=== PATIENT | male | born 1985 | race Caucasian/White ===

== ENCOUNTER 2022-05-02 15:42 | Inpatient (IN) | payer MEDICAID, OTHER ==
[~2022-05-02] VITALS: Ht 175.3 cm; Wt 65.8 kg
[~2022-05-02 15:42] MED LIST: CHLO100T42 PO; DIVA-80 PO; RISP1TAB48 PO; RISP2TAB45 PO
[2022-05-02] MEDS ORDERED: METF-1211 PO (16:24)
[2022-05-02] MEDS ORDERED: RISP3TAB35 PO (16:24)
[2022-05-02] MEDS ORDERED: CHLO100T42 PO (16:24)
[2022-05-02] MEDS ORDERED: CITA-144 PO (16:24)
[2022-05-02] MEDS ORDERED: ATOR40TA28 PO (16:24)
[2022-05-02] MEDS ORDERED: METO50 PO (16:24)
[2022-05-02] MEDS ORDERED: QUET300T2 PO (16:24)
[2022-05-02] MEDS ORDERED: DIPH25TA20 PO (16:24)
[2022-05-02 20:33] LABS: BASOPHILS % (AUTO) 0.7 % (0.0-2.0); EOSINOPHILS % (AUTO) 0.6 % (1.0-6.0); HEMOGLOBIN 11.7 g/dL (13.5-17.5); LYMPHOCYTES # (AUTO) 2.9 K/uL (1.0-4.8); LYMPHOCYTES % (AUTO) 50.7 % (22.0-44.0); MEAN CORPUSCULAR HEMOGLOBIN 26.2 pg (26.0-34.0); MEAN CORPUSCULAR HGB CONC 32.4 G/dL (31.0-37.0); MEAN CORPUSCULAR VOLUME 81 fL (80-100); MONOCYTES # (AUTO) 0.4 K/uL (0.1-1.0); MONOCYTES % (AUTO) 7.1 % (2.0-9.0); NEUTROPHILS # (AUTO) 2.3 K/uL (1.8-7.7); NEUTROPHILS % (AUTO) 40.9 % (40.0-70.0); PLATELET COUNT (AUTO) 234 K/uL (150-450); RED BLOOD CELL COUNT(AUTO) 4.45 MIL/uL (4.50-5.90)
[2022-05-02 20:44] LABS: ANION GAP 7 mmol/L (8-16); CALCIUM, TOTAL 9.8 mg/dL (8.8-10.5); CARBON DIOXIDE 26 mmol/L (22-29); CHLORIDE 100 mmol/L (98-107); CREATININE 0.73 mg/dL (0.60-1.30); GLUCOSE,RANDOM 103 mg/dL (70-110); POTASSIUM 4.1 mmol/L (3.5-5.1); SODIUM SERUM 133 mmol/L (136-145); UREA NITROGEN, BLOOD 11 mg/dL (7-18)
[2022-05-02 20:45] LABS: GLOMERULAR FILTR. RATE CALC > 60 mL/min (>60)
[2022-05-02 20:50] LABS: ALANINE AMINOTRANSFERASE 31 U/L (12-78); ALBUMIN 3.8 g/dL (3.4-5.0); ALKALINE PHOSPHATASE 96 U/L (46-116); ASPARTATE AMINOTRANSFERASE 10 U/L (15-37); BILIRUBIN,TOTAL 0.3 mg/dL (0.1-1.0); TOTAL PROTEIN, SERUM 8.6 g/dL (6.4-8.2)
[2022-05-02 21:09] LABS: AMPHET/METH SCREEN,URINE NEGATIVE (NEGATIVE); BARBITURATE SCREEN, URINE NEGATIVE (NEGATIVE); BENZODIAZEPINES SCREEN,URINE NEGATIVE (NEGATIVE); CANNABINOID SCREEN,URINE NEGATIVE (NEGATIVE); COCAINE SCREEN,URINE NEGATIVE (NEGATIVE); METHADONE SCREEN, URINE NEGATIVE (NEGATIVE); OPIATE SCREEN,URINE NEGATIVE (NEGATIVE)
[2022-05-02 21:10] LABS: PHENCYCLIDINE SCREEN,URINE NEGATIVE (NEGATIVE)
[2022-05-02 22:02] LABS: COVID AG,FIA SOURCE NASOPHARYNGEAL
[2022-05-03] MEDS ORDERED: LORazepam 2 MG TABLET PO PRN (02:30)
[2022-05-03] MEDS ORDERED: ZOLPIDEM TARTRATE 10 MG TABLET PO PRN (02:30)
[2022-05-03] MEDS: HALOPERIDOL 5 MG TABLET PO PRN (04:00)
[2022-05-03 09:51] VITALS: BP 132/81
[2022-05-03] MEDS ORDERED: BENZOCAINE/MENTHOL LOZENGE PO PRN (10:00)
[2022-05-03] MEDS ORDERED: CloNIDine HCL 0.1 MG TABLET PO PRN (10:00)
[2022-05-03] MEDS ORDERED: IBUPROFEN 600 MG TABLET PO PRN (10:00)
[2022-05-03] MEDS ORDERED: DEXTROSE 50%-WATER 25 GM/50 ML SYRINGE IVP PRN (10:00)
[2022-05-03] MEDS ORDERED: ACETAMINOPHEN 325 MG TABLET PO PRN (10:00)
[2022-05-03] MEDS ORDERED: MAG HYDROX/AL HYDROX/SIMETH ES 30 ML SUSPENSION UDCUP PO PRN (10:00)
[2022-05-03] MEDS ORDERED: BACITRACIN 28 GM OINTMENT TP PRN (10:00)
[2022-05-03] MEDS ORDERED: LOPERAMIDE HCL 2 MG CAPSULE PO PRN (10:00)
[2022-05-03] MEDS ORDERED: PETROLATUM,WHITE 28 GM JELLY TP PRN (10:00)
[2022-05-03] MEDS ORDERED: DOCUSATE SODIUM 100 MG CAPSULE PO PRN (10:00)
[2022-05-03] MEDS ORDERED: ONDANSETRON HCL 4 MG TABLET PO PRN (10:00)
[2022-05-03] MEDS ORDERED: MAGNESIUM HYDROXIDE SUSPENSION 30 ML UDCUP PO PRN (10:00)
[2022-05-03] MEDS ORDERED: OMEPRAZOLE 20 MG CAPSULE PO PRN (10:00)
[2022-05-03] MEDS ORDERED: ALBUTEROL SULFATE HFA 90 MCG/PUFF 8 GM INHALER IH PRN (10:00)
[2022-05-03 11:51] LABS: GLUCOMETER DEV NAME(LOC) 3E.I 2; GLUCOSE,POINT OF CARE 97 MG/DL (70-110)
[2022-05-03 16:10] VITALS: BP 109/71
[2022-05-03 16:41] VITALS: BP 113/76
[2022-05-03] MEDS: MetFORMIN HCL 500 MG TABLET PO SCH (16:42)
[2022-05-03] MEDS: METOPROLOL TARTRATE 50 MG TABLET PO SCH (16:42)
[2022-05-03 17:06] LABS: GLUCOMETER DEV NAME(LOC) 3E.I 2; GLUCOSE,POINT OF CARE 167 MG/DL (70-110)
[2022-05-03] MEDS: INSULIN LISPRO 100 UNITS/ML SQ PRN (17:37)
[2022-05-04 05:56] LABS: GLUCOMETER DEV NAME(LOC) 3E.I 2; GLUCOSE,POINT OF CARE 86 MG/DL (70-110)
[2022-05-04] MEDS: MetFORMIN HCL 500 MG TABLET PO SCH ×2 (06:58→17:49)
[2022-05-04 08:00] VITALS: BP 115/74
[2022-05-04] MEDS: METOPROLOL TARTRATE 50 MG TABLET PO SCH ×2 (09:33→17:48)
[2022-05-04] MEDS: RisperiDONE 3 MG TABLET PO SCH ×2 (09:33→17:48)
[2022-05-04] MEDS: ATORVASTATIN CALCIUM 40 MG TABLET PO SCH (09:33)
[2022-05-04 16:00] VITALS: BP 108/72
[2022-05-04 17:01] LABS: GLUCOMETER DEV NAME(LOC) 3E.I 2; GLUCOSE,POINT OF CARE 143 MG/DL (70-110)
[2022-05-04] MEDS: INSULIN LISPRO 100 UNITS/ML SQ PRN ×2 (17:31→23:24)
[2022-05-04 23:36] LABS: GLUCOMETER DEV NAME(LOC) 3E.I 2; GLUCOSE,POINT OF CARE 104 MG/DL (70-110)
[2022-05-05 06:36] LABS: GLUCOMETER DEV NAME(LOC) 3E.I 2; GLUCOSE,POINT OF CARE 102 MG/DL (70-110)
[2022-05-05] MEDS: INSULIN LISPRO 100 UNITS/ML SQ PRN (06:36)
[2022-05-05] MEDS: MetFORMIN HCL 500 MG TABLET PO SCH ×2 (07:02→17:42)
[2022-05-05 07:53] LABS: ANION GAP 4 mmol/L (8-16); CARBON DIOXIDE 30 mmol/L (22-29); CHLORIDE 102 mmol/L (98-107); CHOL/HDL RATIO 2.9 (4.2-7.3); CHOLESTEROL 193 mg/dL (131-200); CREATININE 0.74 mg/dL (0.60-1.30); GLUCOSE,RANDOM 101 mg/dL (70-110); HDL CHOLESTEROL 67 mg/dL (40-60); LDL CHOL (CALC.) 109 mg/dL (0-130); POTASSIUM 4.1 mmol/L (3.5-5.1); SODIUM SERUM 136 mmol/L (136-145); THYROID STIMULATING HORMONE 0.99 uIU/mL (0.36-3.74); TRIGLYCERIDES 84 mg/dL (15-150); UREA NITROGEN, BLOOD 9 mg/dL (7-18)
[2022-05-05 07:54] LABS: GLOMERULAR FILTR. RATE CALC > 60 mL/min (>60)
[2022-05-05] MEDS: RisperiDONE 3 MG TABLET PO SCH ×2 (09:25→17:42)
[2022-05-05] MEDS: METOPROLOL TARTRATE 50 MG TABLET PO SCH ×2 (09:25→17:42)
[2022-05-05] MEDS: ATORVASTATIN CALCIUM 40 MG TABLET PO SCH (09:25)
[2022-05-05 09:40] VITALS: BP 108/69
[2022-05-05 11:22] LABS: GLUCOMETER DEV NAME(LOC) 3E.I 2; GLUCOSE,POINT OF CARE 87 MG/DL (70-110)
[2022-05-05 16:00] VITALS: BP 122/83
[2022-05-05 16:47] LABS: GLUCOMETER DEV NAME(LOC) 3E.I 2; GLUCOSE,POINT OF CARE 116 MG/DL (70-110)
[2022-05-05 20:31] LABS: GLUCOMETER DEV NAME(LOC) 3E.I 2; GLUCOSE,POINT OF CARE 87 MG/DL (70-110)
[2022-05-06 05:36] LABS: GLUCOMETER DEV NAME(LOC) 3E.I 2; GLUCOSE,POINT OF CARE 95 MG/DL (70-110)
[2022-05-06] MEDS: MetFORMIN HCL 500 MG TABLET PO SCH ×2 (06:37→16:55)
[2022-05-06 08:18] VITALS: BP 117/75
[2022-05-06] MEDS: METOPROLOL TARTRATE 50 MG TABLET PO SCH ×2 (09:04→16:55)
[2022-05-06] MEDS: ATORVASTATIN CALCIUM 40 MG TABLET PO SCH (09:04)
[2022-05-06] MEDS: RisperiDONE 3 MG TABLET PO SCH ×2 (09:04→16:55)
[2022-05-06 12:22] LABS: GLUCOMETER DEV NAME(LOC) 3E.I 2; GLUCOSE,POINT OF CARE 73 MG/DL (70-110)
[2022-05-06 17:01] LABS: GLUCOMETER DEV NAME(LOC) 3E.I 2; GLUCOSE,POINT OF CARE 120 MG/DL (70-110)
[2022-05-06 17:08] VITALS: BP 127/87
[2022-05-06 21:21] LABS: GLUCOMETER DEV NAME(LOC) 3E.I 2; GLUCOSE,POINT OF CARE 104 MG/DL (70-110)
[2022-05-06 21:41] VITALS: BP 112/74
[2022-05-07 06:21] LABS: GLUCOMETER DEV NAME(LOC) 3E.I 2; GLUCOSE,POINT OF CARE 117 MG/DL (70-110)
[2022-05-07] MEDS: MetFORMIN HCL 500 MG TABLET PO SCH ×2 (07:00→16:11)
[2022-05-07 08:05] VITALS: BP 131/86
[2022-05-07] MEDS: RisperiDONE 3 MG TABLET PO SCH ×2 (09:16→16:11)
[2022-05-07] MEDS: METOPROLOL TARTRATE 50 MG TABLET PO SCH ×2 (09:16→16:10)
[2022-05-07] MEDS: ATORVASTATIN CALCIUM 40 MG TABLET PO SCH (09:16)
[2022-05-07 11:47] LABS: GLUCOMETER DEV NAME(LOC) 3E.I 2; GLUCOSE,POINT OF CARE 94 MG/DL (70-110)
[2022-05-07 16:02] VITALS: BP 112/69
[2022-05-07 17:21] LABS: GLUCOMETER DEV NAME(LOC) 3E.I 2; GLUCOSE,POINT OF CARE 111 MG/DL (70-110)
[2022-05-07 20:16] LABS: GLUCOMETER DEV NAME(LOC) 3E.I 2; GLUCOSE,POINT OF CARE 98 MG/DL (70-110)
[2022-05-08 06:33] LABS: COVID AG,FIA SOURCE NASAL SWAB
[2022-05-08] MEDS: MetFORMIN HCL 500 MG TABLET PO SCH ×2 (06:41→17:33)
[2022-05-08 06:43] LABS: HEMOGLOBIN A1C 5.8 % (3.8-5.6)
[2022-05-08 06:49] LABS: VALPROIC ACID < 3 mcg/mL (50-100)
[2022-05-08] MEDS: MULTIVITAMINS WITH MINERALS, THERAPEUTIC TABLET PO SCH (08:48)
[2022-05-08] MEDS: METOPROLOL TARTRATE 50 MG TABLET PO SCH ×2 (08:49→17:33)
[2022-05-08] MEDS: RisperiDONE 3 MG TABLET PO SCH ×2 (08:49→17:33)
[2022-05-08] MEDS: ATORVASTATIN CALCIUM 40 MG TABLET PO SCH (08:49)
[2022-05-08 09:40] VITALS: BP 114/73
[2022-05-08 12:00] LABS: GLUCOMETER DEV NAME(LOC) 3E.I 2; GLUCOSE,POINT OF CARE 105 MG/DL (70-110)
[2022-05-08 12:01] LABS: GLUCOMETER DEV NAME(LOC) 3E.I 2; GLUCOSE,POINT OF CARE 100 MG/DL (70-110)
[2022-05-08] MEDS: INSULIN LISPRO 100 UNITS/ML SQ PRN ×2 (12:11→18:05)
[2022-05-08] MEDS: HALOPERIDOL 5 MG TABLET PO PRN (12:42)
[2022-05-08 16:41] VITALS: BP 101/64
[2022-05-08 16:41] LABS: GLUCOMETER DEV NAME(LOC) 3E.I 2; GLUCOSE,POINT OF CARE 110 MG/DL (70-110)
[2022-05-08 20:56] LABS: GLUCOMETER DEV NAME(LOC) 3E.I 2; GLUCOSE,POINT OF CARE 96 MG/DL (70-110)
[2022-05-09 05:57] LABS: GLUCOMETER DEV NAME(LOC) 3E.I 2; GLUCOSE,POINT OF CARE 82 MG/DL (70-110)
[2022-05-09] MEDS: MetFORMIN HCL 500 MG TABLET PO SCH ×2 (06:47→16:31)
[2022-05-09 08:45] VITALS: BP 103/58
[2022-05-09] MEDS: METOPROLOL TARTRATE 50 MG TABLET PO SCH ×2 (09:00→16:31)
[2022-05-09] MEDS: ATORVASTATIN CALCIUM 40 MG TABLET PO SCH (09:19)
[2022-05-09] MEDS: MULTIVITAMINS WITH MINERALS, THERAPEUTIC TABLET PO SCH (09:20)
[2022-05-09] MEDS: RisperiDONE 3 MG TABLET PO SCH ×2 (09:25→16:31)
[2022-05-09] MEDS: INSULIN LISPRO 100 UNITS/ML SQ PRN (11:34)
[2022-05-09 11:51] LABS: GLUCOMETER DEV NAME(LOC) 3E.I 2; GLUCOSE,POINT OF CARE 135 MG/DL (70-110)
[2022-05-09 16:20] VITALS: BP 115/73
[2022-05-09 17:07] LABS: GLUCOMETER DEV NAME(LOC) 3E.I 2; GLUCOSE,POINT OF CARE 79 MG/DL (70-110)
[2022-05-09 22:16] LABS: GLUCOMETER DEV NAME(LOC) 3E.I 2; GLUCOSE,POINT OF CARE 105 MG/DL (70-110)
[2022-05-10 05:56] VITALS: BP 107/64
[2022-05-10 06:16] LABS: GLUCOMETER DEV NAME(LOC) 3E.I 2; GLUCOSE,POINT OF CARE 86 MG/DL (70-110)
[2022-05-10] MEDS: MetFORMIN HCL 500 MG TABLET PO SCH ×2 (06:42→17:47)
[2022-05-10 08:30] VITALS: BP 106/63
[2022-05-10] MEDS: ATORVASTATIN CALCIUM 40 MG TABLET PO SCH (09:31)
[2022-05-10] MEDS: RisperiDONE 3 MG TABLET PO SCH ×2 (09:31→17:47)
[2022-05-10] MEDS: MULTIVITAMINS WITH MINERALS, THERAPEUTIC TABLET PO SCH (09:31)
[2022-05-10] MEDS: METOPROLOL TARTRATE 50 MG TABLET PO SCH ×2 (09:31→17:47)
[2022-05-10 11:16] LABS: GLUCOMETER DEV NAME(LOC) 3E.I 2; GLUCOSE,POINT OF CARE 97 MG/DL (70-110)
[2022-05-10 16:19] VITALS: BP 100/64
[2022-05-10 18:06] LABS: GLUCOMETER DEV NAME(LOC) 3E.I 2; GLUCOSE,POINT OF CARE 129 MG/DL (70-110)
[2022-05-10 20:51] LABS: GLUCOMETER DEV NAME(LOC) 3E.I 2; GLUCOSE,POINT OF CARE 98 MG/DL (70-110)
[2022-05-11 06:27] LABS: GLUCOMETER DEV NAME(LOC) 3E.I 2; GLUCOSE,POINT OF CARE 93 MG/DL (70-110)
[2022-05-11] MEDS: MetFORMIN HCL 500 MG TABLET PO SCH ×2 (06:39→17:36)
[2022-05-11 08:31] VITALS: BP 109/70
[2022-05-11] MEDS: MULTIVITAMINS WITH MINERALS, THERAPEUTIC TABLET PO SCH (09:02)
[2022-05-11] MEDS: ATORVASTATIN CALCIUM 40 MG TABLET PO SCH (09:02)
[2022-05-11] MEDS: RisperiDONE 3 MG TABLET PO SCH ×2 (09:02→16:48)
[2022-05-11] MEDS: METOPROLOL TARTRATE 50 MG TABLET PO SCH ×2 (10:58→16:48)
[2022-05-11 11:21] LABS: GLUCOMETER DEV NAME(LOC) 3E.I 2; GLUCOSE,POINT OF CARE 132 MG/DL (70-110)
[2022-05-11 16:05] VITALS: BP 113/67
[2022-05-11 16:36] LABS: GLUCOMETER DEV NAME(LOC) 3E.I 2; GLUCOSE,POINT OF CARE 87 MG/DL (70-110)
[2022-05-11 20:56] LABS: GLUCOMETER DEV NAME(LOC) 3E.I 2; GLUCOSE,POINT OF CARE 93 MG/DL (70-110)
[2022-05-12 06:16] LABS: GLUCOMETER DEV NAME(LOC) 3E.I 2; GLUCOSE,POINT OF CARE 93 MG/DL (70-110)
[2022-05-12] MEDS: MetFORMIN HCL 500 MG TABLET PO SCH (07:06)
[2022-05-12 08:02] VITALS: BP 130/74
[2022-05-12] MEDS: MULTIVITAMINS WITH MINERALS, THERAPEUTIC TABLET PO SCH (09:13)
[2022-05-12] MEDS: METOPROLOL TARTRATE 50 MG TABLET PO SCH (09:13)
[2022-05-12] MEDS: RisperiDONE 3 MG TABLET PO SCH (09:13)
[2022-05-12] MEDS: ATORVASTATIN CALCIUM 40 MG TABLET PO SCH (09:14)
[2022-05-12] MEDS ORDERED: RISP3TAB63 PO (13:45)
[2022-05-12 14:01] LABS: GLUCOMETER DEV NAME(LOC) 3E.I 2; GLUCOSE,POINT OF CARE 86 MG/DL (70-110)
== END 2022-05-12 15:45 | disposition home or self-care (01) | DRG 750 ==
LOC: EMS 15:42 → 3EI 05-03 07:01
PROVIDERS: ADMIT Psychiatry & Neurology Psychiatry; ATTEND Psychiatry & Neurology Psychiatry
DX: F25.9 Schizoaffective disorder, unspecified (principal); E11.9 Type 2 diabetes mellitus without complications; E78.5 Hyperlipidemia, unspecified; I10 Essential (primary) hypertension; Z20.822 Contact with and (suspected) exposure to COVID-19; K21.9 Gastro-esophageal reflux disease without esophagitis; G47.00 Insomnia, unspecified; F41.9 Anxiety disorder, unspecified
CPT/HCPCS: 80048; 80053; 80061; 80164; 82962; 83036; 84443; 85025; 87081; 93925; 93970; 97116; 97162; 97530; 99285; G0480